=== PATIENT | female | born 1990 | race Caucasian/White ===

== ENCOUNTER → 2018-06-18 14:50 | Outpatient (CLI) | payer MEDICAID ==
[~2018-06-18 14:50] MED LIST: COLACE100 MG PO; CYCLOBENZAPRINE10 MG; FERROUS SULFAT325 MG PO; NIFEDIPINE ER60 MG PO; NORMODYNE / TR200 MG PO
[2018-06-18 15:34] LABS: APPEARANCE CLEAR (CLEAR); BILIRUBIN NEGATIVE (NEGATIVE); COLOR YELLOW (YELLOW); GLUCOSE NEGATIVE (NEGATIVE); KETONE NEGATIVE (NEGATIVE); NITRITE NEGATIVE (NEGATIVE); PROTEIN NEGATIVE (NEGATIVE); UROBILINOGEN NORMAL (NORMAL)
[2018-06-18 15:35] LABS: BACTERIA FEW /hpf (NONE SEEN); RED CELLS - URINE 0-5 /hpf (0-5)
[2018-06-18 15:36] LABS: CALCIUM OXALATE CRYSTALS OCC /hpf (NONE SEEN); YEAST OCC /hpf (NONE SEEN)
== END | disposition home or self-care (01) ==
LOC: D.LDO 14:50
PROVIDERS: Obstetrics & Gynecology
DX: O16.3 Unspecified maternal hypertension, third trimester (principal); Z3A.34 34 weeks gestation of pregnancy

== ENCOUNTER → 2018-07-05 14:00 | Outpatient (CLI) | payer MEDICAID ==
[2018-07-05 15:13] LABS: BASOPHILS 0.3 % (0-2); EOSINOPHILS 1.4 % (0-7); HEMATOCRIT 32.3 % (36.0-48.0); HEMOGLOBIN 10.4 g/dL (12-16); IMMATURE GRANULOCYTES 0.6 % (0-5); LYMPHOCYTES 19.6 % (15-50); MCH 27.2 pg (26.0-34.0); MCHC 32.2 g/dL (31.0-37.0); MCV 84.3 fL (80.0-100.0); MEAN PLATELET VOLUME 12.5 fL (7.4-10.4); MONOCYTES 8.9 % (2-11); NEUTROPHILS 69.2 % (40-80); PLATELET COUNT 206 10x3/uL (130-400); RBC 3.83 10x6/uL (4.00-5.40); RDW 14.2 % (11.5-14.5)
[2018-07-05 15:49] LABS: ALBUMIN 2.3 g/dL (3.4-5.0); ALKALINE PHOSPHATASE 177 U/L (46-116); ALT (SGPT) 14 U/L (10-68); CALC OSMOLALITY 271 mosm/kg (275-300); CALCIUM 8.4 mg/dL (8.5-10.1); CARBON DIOXIDE 21.3 mmol/L (21.0-32.0); CHLORIDE - SERUM 106 mmol/L (98-107); CREATININE - SERUM 0.9 mg/dL (0.6-1.3); POTASSIUM - SERUM 4.1 mmol/L (3.5-5.1); PROTEIN - SERUM 5.8 g/dL (6.4-8.2); SODIUM 138 mmol/L (136-145); UREA NITROGEN 8 mg/dL (7-18); eGFR NON AFRICAN AMERICAN 81 mL/min (90-120)
[2018-07-05 15:51] LABS: BILIRUBIN - DIRECT 0.09 mg/dL (0.00-0.30); BILIRUBIN - INDIRECT 0.31 mg/dL (0.00-1.00); URIC ACID 4.8 mg/dL (2.6-7.2)
[2018-07-05 15:52] LABS: GLUCOSE 69 mg/dL (74-106)
[2018-07-06 16:18] LABS: PROTEIN - URINE 33.2 mg/dL (0.0-11.9)
== END | disposition home or self-care (01) ==
LOC: D.LDO 14:00
PROVIDERS: Obstetrics & Gynecology
DX: O16.3 Unspecified maternal hypertension, third trimester (principal); Z3A.37 37 weeks gestation of pregnancy

== ENCOUNTER 2018-07-11 12:25 | Inpatient (IN) | payer MEDICAID ==
[~2018-07-11] VITALS: Ht 157.5 cm; Wt 79.4 kg
--- NOTE | ~2018-07-11 | OP ---
PATIENT NAME: TYSON LEMUS MEDICAL RECORD: [id number] :92 LOCATION:[id number] ADMISSION DATE:07/12/18 SURGEON: MEDHAT LAWRENCE MD DATE OF OPERATION: 07/12/2018 PREOPERATIVE DIAGNOSES: 1. Preeclampsia at term. 2. History of prior section. 3. Unwanted fertility. POSTOPERATIVE DIAGNOSES: 1. Preeclampsia at term. 2. History of prior section. 3. Unwanted fertility. PROCEDURES: 1. Repeat low transverse section. 2. tubal ligation using a [place] technique. SURGEON: Medhat Lawrence MD COAT JOINER LOCKSTITCH: Dayron Alaniz. ANESTHESIA: Spinal. FINDINGS: Viable female , vertex presentation, Apgars 9 and 9, weight 8 pounds 13 ounces. Uterus, tubes, and ovaries unremarkable. SPECIMENS REMOVED: Portions of right and left tube. SPECIMEN DISPOSITION: Pathology. ESTIMATED BLOOD LOSS: 750 cc. FLUIDS: 600 cc lactated Ringer's. URINE OUTPUT: 150 cc of clear urine. COMPLICATIONS: None. DRAINS: Royal to gravity. INDICATIONS: The patient is a 27-year-old parous female with a history of prior section. The patient has preeclampsia with worsening pressures. The patient has consented for a section. The patient also has undesired fertility and risks, benefits as well as alternatives to tubal ligation have been discussed at length. The patient understands the possibility of failure of 1 in 100 with an increased chance of an ectopic gestation, which can be a life-threatening condition if not treated properly. DESCRIPTION OF PROCEDURE: After informed consent was assured, the patient was taken to the operating room where anesthetic was obtained. The patient was now prepped and draped after being placed in the supine position with a left lateral tilt. The anesthetic was assessed and found to be adequate and an incision was made over the old scar. This was carried down to the underlying layer of the OPERATIVE REPORT [id number] TYSON LEMUS fascia, which was opened in the midline and extended laterally. The rectus bellies were dissected free superiorly and inferiorly then in the midline. The peritoneum was entered sharply. The peritoneal opening with good visualization of the bladder. Bladder flap was now developed and a DeLee all-purpose retractor was inserted. Low transverse hysterotomy was performed and the was delivered onto the abdomen atraumatically. The was passed to the awaiting attendant after the cord was doubly clamped and cut. The placenta was delivered via Crede maneuver. Uterus exteriorized, cleared of all clot and debris. This incision was now closed with a running locked stitch of chromic. After this has been performed, attention directed to the right tube, which was elevated and a window developed in the antimesenteric portion. Through this, the mesosalpinx, two ligatures were passed and secured on the proximal and distal segments. The intervening segment of tube was excised and ostia cauterized. This was repeated on the contralateral side. After this has been performed, the uterus was returned to the abdomen and pelvis irrigated. After the irrigants removed, visualization of both right and left tubal stumps reveals adequate hemostasis. The rectus bellies were now reapproximated in the midline and the fascia closed with looped PDS. Subcutaneous tissues were irrigated, bleeding vessels cauterized, and the skin was reapproximated with a subcuticular stitch. Sterile dressing is applied. Sponge, lap, needle counts were correct times 2 at the close of this procedure. TRANSINT:[id number] Voice Confirmation ID: [id number] DOCUMENT ID: [id number] MEDHAT LAWRENCE MD at 1627 CC: [id number] DICTATION DATE: 07/12/18 1615 BEAD FORMING MACHINE SET UP OPERATOR: 07/12/18 2310 ADM IN [facility] [address] [place] [address]
[2018-07-11 13:41] LABS: BASOPHILS 0.2 % (0-2); EOSINOPHILS 1.2 % (0-7); HEMATOCRIT 32.4 % (36.0-48.0); IMMATURE GRANULOCYTES 0.5 % (0-5); LYMPHOCYTES 24.2 % (15-50); MCH 26.2 pg (26.0-34.0); MCHC 30.9 g/dL (31.0-37.0); MEAN PLATELET VOLUME 12.6 fL (7.4-10.4); MONOCYTES 8.5 % (2-11); NEUTROPHILS 65.4 % (40-80); PLATELET COUNT 201 10x3/uL (130-400); RBC 3.81 10x6/uL (4.00-5.40); RDW 14.6 % (11.5-14.5); WBC 8.1 10x3/uL (4.8-10.8)
[2018-07-11 13:59] LABS: ALBUMIN 2.3 g/dL (3.4-5.0); ANION GAP 13.9 mmol/L (8-16); BILIRUBIN - DIRECT 0.09 mg/dL (0.00-0.30); BILIRUBIN - INDIRECT 0.28 mg/dL (0.00-1.00); BILIRUBIN - TOTAL 0.37 mg/dL (0.2-1.3); CALCIUM 8.1 mg/dL (8.5-10.1); CARBON DIOXIDE 21.2 mmol/L (21.0-32.0); POTASSIUM - SERUM 4.1 mmol/L (3.5-5.1); PROTEIN - SERUM 5.7 g/dL (6.4-8.2); URIC ACID 5.8 mg/dL (2.6-7.2)
[2018-07-11 14:03] LABS: APPEARANCE CLEAR (CLEAR); BILIRUBIN NEGATIVE (NEGATIVE); COLOR YELLOW (YELLOW); GLUCOSE NEGATIVE (NEGATIVE); KETONE NEGATIVE (NEGATIVE); NITRITE NEGATIVE (NEGATIVE); PROTEIN 2+ mg/dL (NEGATIVE); SPECIFIC GRAVITY 1.005 (1.005-1.020); UROBILINOGEN NORMAL (NORMAL)
[2018-07-11 14:09] LABS: BACTERIA FEW /hpf (NONE SEEN); EPITHELIAL CELLS 0-5 /hpf (0-5); RED CELLS - URINE RARE /hpf (0-5); WHITE CELLS - URINE 0-5 /hpf (0-5)
[2018-07-11] MEDS ORDERED: CYCLOBENZAPRINE10 MG (19:58)
[2018-07-11 21:05] VITALS: BP 154/88; Ht 157.5 cm; Wt 79.4 kg
[2018-07-12] VITALS (14 sets, daily range): BP systolic 99–157; BP diastolic 52–107
[2018-07-13 07:33] LABS: RAPID PLASMA REAGIN Non Reactive (Non Reactive)
[2018-07-13 07:58] LABS: HEMATOCRIT 22.7 % (36.0-48.0); MCH 26.1 pg (26.0-34.0); MCHC 31.3 g/dL (31.0-37.0); MCV 83.5 fL (80.0-100.0); MEAN PLATELET VOLUME 11.9 fL (7.4-10.4); RDW 14.9 % (11.5-14.5)
[2018-07-13 07:59] LABS: HEMOGLOBIN 7.1 g/dL (12-16); RBC 2.72 10x6/uL (4.00-5.40); WBC 14.9 10x3/uL (4.8-10.8)
[2018-07-13 08:55] VITALS: BP 143/88
[2018-07-13 19:20] VITALS: BP 139/90
[2018-07-13 22:32] VITALS: BP 140/94
[2018-07-13 23:10] VITALS: BP 143/98
[2018-07-14] VITALS (24 sets, daily range): BP systolic 120–185; BP diastolic 79–113
[2018-07-14 18:44] LABS: MCH 26.8 pg (26.0-34.0); MCHC 32.4 g/dL (31.0-37.0); MCV 82.6 fL (80.0-100.0); MEAN PLATELET VOLUME 11.1 fL (7.4-10.4); RDW 16.4 % (11.5-14.5); WBC 12.4 10x3/uL (4.8-10.8)
[2018-07-14 18:45] LABS: HEMATOCRIT 28.1 % (36.0-48.0); HEMOGLOBIN 9.1 g/dL (12-16); RBC 3.4 10x6/uL (4.00-5.40)
[2018-07-14 18:51] LABS: ALBUMIN 1.9 g/dL (3.4-5.0); ALKALINE PHOSPHATASE 113 U/L (46-116); ALT (SGPT) 11 U/L (10-68); BILIRUBIN - TOTAL 0.23 mg/dL (0.2-1.3); CALC OSMOLALITY 278 mosm/kg (275-300); CALCIUM 8.2 mg/dL (8.5-10.1); CARBON DIOXIDE 25.1 mmol/L (21.0-32.0); CHLORIDE - SERUM 107 mmol/L (98-107); CREATININE - SERUM 0.8 mg/dL (0.6-1.3); GLUCOSE 93 mg/dL (74-106); LDH 260 U/L (81-234); PROTEIN - SERUM 5.7 g/dL (6.4-8.2); SODIUM 140 mmol/L (136-145); UREA NITROGEN 12 mg/dL (7-18); eGFR NON AFRICAN AMERICAN > 90 mL/min (90-120)
[2018-07-14 22:40] LABS: PRO/CRE RATIO URINE 2.4 mg/g; PROTEIN - URINE 10.4 mg/dL (0.0-11.9)
[2018-07-14 22:42] LABS: CREATININE - URINE 4.3 mg/dL (30-125)
[2018-07-15] VITALS (16 sets, daily range): BP systolic 96–140; BP diastolic 53–97
[2018-07-15 15:06] LABS: ALBUMIN 1.8 g/dL (3.4-5.0); ALKALINE PHOSPHATASE 107 U/L (46-116); ALT (SGPT) 12 U/L (10-68); BILIRUBIN - TOTAL 0.33 mg/dL (0.2-1.3); CALC OSMOLALITY 268 mosm/kg (275-300); CARBON DIOXIDE 26.1 mmol/L (21.0-32.0); CHLORIDE - SERUM 102 mmol/L (98-107); CREATININE - SERUM 0.9 mg/dL (0.6-1.3); GLUCOSE 101 mg/dL (74-106); LDH 266 U/L (81-234); POTASSIUM - SERUM 4.2 mmol/L (3.5-5.1); PROTEIN - SERUM 5.6 g/dL (6.4-8.2); SODIUM 135 mmol/L (136-145); UREA NITROGEN 9 mg/dL (7-18); URIC ACID 5.1 mg/dL (2.6-7.2); eGFR NON AFRICAN AMERICAN 81 mL/min (90-120)
[2018-07-15 15:11] LABS: HEMATOCRIT 29.5 % (36.0-48.0); HEMOGLOBIN 9.4 g/dL (12-16); MCH 26.3 pg (26.0-34.0); MCHC 31.9 g/dL (31.0-37.0); MCV 82.6 fL (80.0-100.0); MEAN PLATELET VOLUME 10.5 fL (7.4-10.4); RBC 3.57 10x6/uL (4.00-5.40); RDW 16.5 % (11.5-14.5); WBC 11.2 10x3/uL (4.8-10.8)
[2018-07-15 15:19] LABS: CALCIUM 6.5 mg/dL (8.5-10.1)
[2018-07-16] VITALS (16 sets, daily range): BP systolic 128–168; BP diastolic 85–108
[2018-07-16] MEDS ORDERED: NORMODYNE / TR200 MG PO ×2 (08:58→16:28)
[2018-07-16] MEDS ORDERED: COLACE100 MG PO ×3 (09:13→16:30)
[2018-07-16 12:44] LABS: HEMATOCRIT 32.1 % (36.0-48.0); HEMOGLOBIN 10.1 g/dL (12-16); MCH 26.6 pg (26.0-34.0); MCHC 31.5 g/dL (31.0-37.0); MCV 84.5 fL (80.0-100.0); MEAN PLATELET VOLUME 10.7 fL (7.4-10.4); RDW 16.4 % (11.5-14.5); WBC 10.1 10x3/uL (4.8-10.8)
[2018-07-16 12:51] LABS: ALBUMIN 2.1 g/dL (3.4-5.0); ANION GAP 13.7 mmol/L (8-16); BILIRUBIN - TOTAL 0.3 mg/dL (0.2-1.3); CALCIUM 8.6 mg/dL (8.5-10.1); CARBON DIOXIDE 24.9 mmol/L (21.0-32.0); POTASSIUM - SERUM 4.6 mmol/L (3.5-5.1); PROTEIN - SERUM 5.7 g/dL (6.4-8.2); URIC ACID 4.4 mg/dL (2.6-7.2)
[2018-07-16 12:59] LABS: PLATELET COUNT 339 10x3/uL (130-400)
[2018-07-16 13:29] LABS: EOSINOPHILS 4 % (0-7); LYMPHOCYTES 22 % (15-50); MONOCYTES 5 % (2-11); NEUTROPHILS 69 % (40-80); PLATELET ESTIMATE NORMAL
[2018-07-16 13:30] LABS: ANISOCYTOSIS 1+
[2018-07-16 14:48] LABS: CREATININE - URINE 40.6 mg/dL (30-125); PRO/CRE RATIO URINE 0.7 mg/g; PROTEIN - URINE 28.4 mg/dL (0.0-11.9)
[2018-07-17 05:32] VITALS: BP 137/95
[2018-07-17] MEDS ORDERED: NIFEDIPINE ER60 MG PO (09:00)
[2018-07-17] MEDS ORDERED: FERROUS SULFAT325 MG PO (09:01)
== END 2018-07-17 10:45 | disposition home or self-care (01) | DRG 765 ==
LOC: D.LDO 12:25 → D.LD 17:01 → D.LDO 07-12 07:04 → D.LD 07-12 07:05 → D.WS 07-15 20:25
PROVIDERS: Obstetrics & Gynecology
PROC: 10D00Z1 Extraction of Products of Conception, Low, Open Approach (ICD-10-PCS; principal; 2018-07-12 09:30)
PROC: 0UB70ZZ Excision of Bilateral Fallopian Tubes, Open Approach (ICD-10-PCS; 2018-07-12 09:30)
DX: O14.94 Unspecified pre-eclampsia, complicating childbirth (principal); D62 Acute posthemorrhagic anemia; Z3A.38 38 weeks gestation of pregnancy; Z37.0 Single live birth; O99.824 Streptococcus B carrier state complicating childbirth; O72.2 Delayed and secondary postpartum hemorrhage; O99.02 Anemia complicating childbirth; Z30.2 Encounter for sterilization; Z30.09 Encounter for other general counseling and advice on contraception; O34.219 Maternal care for unspecified type scar from previous cesarean delivery